=== PATIENT | male | born 1950 ===

== ENCOUNTER → 2018-03-29 | Outpatient (CLI) | payer OTHER | LOC: CIMAGING 10:25 | PROVIDERS: ATTEND Family Medicine | DX: N32.9 Bladder disorder, unspecified (principal); K40.90 Unilateral inguinal hernia, without obstruction or gangrene, not specified as recurrent; K57.30 Diverticulosis of large intestine without perforation or abscess without bleeding; M51.34 Other intervertebral disc degeneration, thoracic region | CPT/HCPCS: 74178-PO; 82565-PO ==